=== PATIENT | male | born 1990 | race Two or more races ===

== ENCOUNTER 2017-11-08 13:02 | Emergency (ER) | payer OTHER ==
[~2017-11-08] VITALS: Ht 170.2 cm; Wt 81.6 kg
[2017-11-08] MEDS ORDERED: PROBIOTIC & AC1 EACH PO (16:25)
[2017-11-08] MEDS ORDERED: ZANTAC300 MG PO (16:25)
[2017-11-08] MEDS ORDERED: DICY20TA PO (16:25)
[2017-11-08] MEDS ORDERED: LOPERAMIDE2 M1 PO (16:25)
[2017-11-08] MEDS ORDERED: CIPRO500 MG PO (16:25)
[2017-11-08] MEDS ORDERED: ZOFRAN ODT8 MG PO (16:25)
== END 2017-11-08 19:52 | disposition home or self-care (01) ==
LOC: ER 13:02
DX: K52.89 Other specified noninfective gastroenteritis and colitis (principal); E86.0 Dehydration; A05.8 Other specified bacterial foodborne intoxications

== ENCOUNTER 2022-06-14 12:20 | Emergency (ER) | payer OTHER ==
[~2022-06-14] VITALS: Ht 170.2 cm; Wt 77.6 kg
[~2022-06-14 12:20] MED LIST: CIPRO500 MG PO; DICY20TA PO; LOPERAMIDE2 M1 PO; PROBIOTIC & AC1 EACH PO; ZANTAC300 MG PO; ZOFRAN ODT8 MG PO
== END 2022-06-14 15:48 | disposition home or self-care (01) ==
LOC: ER 12:20
DX: J34.0 Abscess, furuncle and carbuncle of nose (principal); Z20.828 Contact with and (suspected) exposure to other viral communicable diseases

== ENCOUNTER 2023-03-17 14:00 | Emergency (ER) | payer OTHER ==
[~2023-03-17] VITALS: Ht 170.2 cm; Wt 77.1 kg
[2023-03-17] MEDS ORDERED: KETO10TA2 PO (19:39)
== END 2023-03-17 19:50 | disposition home or self-care (01) ==
LOC: ER 14:00
DX: N20.0 Calculus of kidney (principal); N21.0 Calculus in bladder